=== PATIENT | female | born 1965 | race Caucasian/White ===

== ENCOUNTER 2017-03-11 18:08 | Emergency (ER) | payer OTHER ==
[~2017-03-11] VITALS: Ht 170.2 cm; Wt 95.3 kg
[2017-03-11] MEDS ORDERED: METFORMIN HCL500 M3 PO (18:42)
[2017-03-11] MEDS ORDERED: SYNTHROID300 MCG PO (18:42)
[2017-03-11] MEDS ORDERED: ASPIRIN EC81 M1 PO (18:42)
--- NOTE | 2017-03-11 18:43 | ED UPPER/LOWER EXTREMITY COMPL ---
History of Present Illness General Chief Complaint: Lower Extremity Injury Stated Complaint: LT LEG PAIN S/P FALL ON 03/07 Source: patient Exam Limitations: no limitations Vital Signs & Intake/Output Vital Signs & Intake/Output Vital Signs Date Time Temp Pulse Resp B/P B/P Pulse O2 O2 Flow FiO2 Mean Ox Delivery Rate 03/11 2004 98.2 80 16 148/80 98 Room Air Room Air 03/11 181 98.6 82 18 152/89 98 Room Air ED Intake and Output 03/12 0000 03/11 1200 Intake Total 0 Output Total Balance 0 Intake, Oral 0 Patient 210 lb Weight Weight Reported by Patient Measurement Method Allergies Coded Allergies: NO KNOWN ALLERGIES (10/27/11) Reconcile Medications Aspirin (Ecotrin*) 81 MG TABLET.DR 1 TAB PO DAILY HEART/BLOOD (Reported) Levothyroxine Sodium (Synthroid) 300 MCG TABLET 1 TAB PO DAILY THYROID ( Reported) Metformin HCl 500 MG TABLET 1 TAB PO TID DM (Reported) Triage Note: 51 YO FEMALE TO TRIAGE C/O L SIDED SOLANO PAIN S/P FALL ON FRIDAY. STATES SHE HAS BEEN ELEVATING AND ICING THE LEG BUT THE PAIN IS GETTING WORSE. BEEN TAKING TYLENOL WITHOUT RELIEF. NOTED WITH BRUISING AND SWELLING TO L SOLANO AREA. Triage Nurses Notes Reviewed? yes Onset: Abrupt Duration: day(s): (4) Timing: no prior history Severity: moderate Severity Numbers: 8 Pain/Injury Location: Left: Leg. Method of Injury: fall Modifying Factors: Improves With: immobilization. Worsens With: movement. HPI: Patient is a 51-year-old female with history of diabetes presenting to the emergency department with chief complaint of left leg pain, bruising and swelling worsening over the past 4 days. She reports that she tripped and fell off the stairs 4 days ago and since then has had pain over the left solano. Pain is achy throbbing worse with ambulation. She reports that she still been walking. She's been trying to elevate and ice with little relief. Denies any nausea vomiting fevers or chills chest pain or shortness of breath. (MARIANA MA,DONATO) Past History Travel History Traveled to [place] past 21 day No Medical History Any Pertinent Medical History? see below for history Respiratory: asthma Endocrine: diabetes, HYPOTHRYOIDISM Surgical History Surgical History: non-contributory Psychosocial History What is your primary language [place] Tobacco Use: Never used Family History Hx Contributory? No (DONATO GARCIAS) Review of Systems Review of Systems Constitutional: Reports: no symptoms. Comments Review of systems: See HPI, All other systems negative. Constitutional, no chills fever or weight loss HEENT: No visual changes no sore throat no congestion Cardiovascular: No chest pain ,palpitation , orthopnea Skin, no jaundice no rashes Respiratory: No dyspnea cough sputum or hemoptysis GI: No nausea no vomiting Muscle skeletal: no back pain, no neck pain, Neurologic: No numbness Immunology: No splenectomy or history of AIDS (DONATO GARCIAS) Physical Exam Physical Exam General Appearance: well developed/nourished, no apparent distress, alert, awake , comfortable Comments: Well-developed well-nourished person in no acute distress HEENT: Pupils equally round and reactive to light and accommodation. Nose is atraumatic. Neck: NORMAL inspection Back: Nontender, Cardiovascular: Regular rate and rhythms no murmurs rubs or gallops, normal JVP Respiratory: No respiratory distress. Extremity: Moderate edema noted over the anterior left solano with ecchymosis present. No calf tenderness to palpation bilaterally. Pedal pulses are 2+ bilaterally. No pain to palpation over the popliteal region on the left lower extremity. Mildly tender to palpation over the anterior aspect of the left patella. Patella stable. Limited range of motion of the left knee secondary to pain. Anterior drawer test, negative posterior drawer test on the left lower extremity. Neuro: Alert oriented x3, motor sensory normal IN LOWER EXT Skin: Ecchymosis approximately 8 cm in diameter noted over the anterior left solano, proximal aspect. No appreciable rash on exposed skin, skin is warm and dry. Psych: Mood and affect is normal, memory and judgment is normal. (DONATO GARCIAS) Progress Differential Diagnosis: contusion, dislocation, DVT, fracture, sprain Plan of Care: Orders Procedure Date/time Status [id number], LEFT 03/11 1842 Active XRY-KNEE COMPLETE LEFT 03/11 1842 Active Diagnostic Imaging: Viewed by Me: Radiology Read. Discussed w/RAD: Radiology Read. Radiology Impression: PATIENT: MARILIA DYER PRESENT AGE: 51 PATIENT ACCOUNT NO: [id number] : 66 LOCATION: [facility] ORDERING PHYSICIAN: DONATO MA SERVICE DATE: 03/11/17 EXAM TYPE: RAD - XRY-KNEE COMPLETE LEFT; [id number], LEFT EXAMINATION: XR TIBIA AND FIBULA, LEFT XR KNEE, LEFT CLINICAL INFORMATION: Pain status post fall COMPARISON: None TECHNIQUE: 4 views of the left knee. 2 views of the left tibia/ fibula. FINDINGS: Left knee: No fracture or subluxation. Mild medial compartment joint space narrowing. Small marginal osteophytes at the patellofemoral compartment. No joint effusion. Soft tissue swelling laterally. Left tibia/ fibula: No acute fracture or cortical disruption. Anatomic alignment at the ankle. Anterior and lateral soft tissue swelling. IMPRESSION: No acute fracture or malalignment. DICTATED BY: YRIS ESCOBEDO,EL DATE/TIME DICTATED:03/11/171921 WOOD SCIENCE PROFESSOR:TAMMI (MARIANA MA,DONATO) Departure Departure Time of Disposition: 1934 Disposition: HOME OR SELF CARE Condition: Stable Clinical Impression Primary Impression: Contusion of leg Qualifiers: Encounter type: initial encounter Laterality: left Qualified Code: S80.12XA - Contusion of left lower leg, initial encounter Referrals: ELLY ESCOBEDO,ROSAURA Lee (PCP/Family) Additional Instructions: Follow-up with your primary care physician call to make an appointment. Rest ice and elevate affected extremity. Wear Deyvi wrap for support. Return for worsening symptoms or concerns. Departure Forms: Customer Survey General Discharge Information (MARIANA MA,DONATO) PA/FRONT OFFICE SECRETARY Co-Sign Statement Statement: ED Attending supervision documentation- [] I saw and evaluated the patient. I have also reviewed all the pertinent lab results and diagnostic results. I agree with the findings and the plan of care as documented in the PA's/FRONT OFFICE SECRETARY's documentation. [X] I have reviewed the ED Record and agree with the PA's/FRONT OFFICE SECRETARY's documentation. [] Additions or exceptions (if any) to the PAs/FRONT OFFICE SECRETARY's note and plan are summarized below: [] (HELDER ESCOBEDO,MEGAN)
--- NOTE | 2017-03-11 19:30 | RADIOLOGY REPORT ---
EXAMINATION: XR TIBIA AND FIBULA, LEFT XR KNEE, LEFT CLINICAL INFORMATION: Pain status post fall COMPARISON: None TECHNIQUE: 4 views of the left knee. 2 views of the left tibia/fibula. FINDINGS: Left knee: No fracture or subluxation. Mild medial compartment joint space narrowing. Small marginal osteophytes at the patellofemoral compartment. No joint effusion. Soft tissue swelling laterally. Left tibia/fibula: No acute fracture or cortical disruption. Anatomic alignment at the ankle. Anterior and lateral soft tissue swelling. IMPRESSION: No acute fracture or malalignment.
[2017-03-11 20:04] VITALS: BP 148/80
== END 2017-03-11 20:04 ==
LOC: ERH 18:08
DX: S80.12XA Contusion of left lower leg, initial encounter (principal); W18.09XA Striking against other object with subsequent fall, initial encounter; Y92.9 Unspecified place or not applicable; Y93.9 Activity, unspecified
CPT/HCPCS: 73562-LT; 73590-LT